=== PATIENT | male | born 1945 | race American Indian/Alaskan Native ===

== ENCOUNTER 2017-01-17 08:57 | Day surgery (SDC) | payer MEDICARE ==
[2017-01-17] MEDS ORDERED: ATROPINE 0.1% (CARDIAC) ONE (11:04)
[2017-01-17] MEDS ORDERED: NACL 0.9% 500 ML 500 ML ONE (11:04)
[2017-01-17 11:57] VITALS: BP 112/81
--- NOTE | 2017-01-18 01:21 | Tilt Table Report ---
REFERRING PHYSICIAN: Dr. Margie Kumar. CLINICAL DATA: This is a 71-year-old pleasant -[place] gentleman with a history of nonobstructive coronary artery disease, recurrent syncope. He underwent a tilt table test as per the protocol to rule out vasodepressor syncope. The patient was tilted to 80 degrees and he was observed for 30 minutes in that position. The patient's slowest heart rate was 76 per minute and peak heart rate was 92 beats per minute. The lowest blood pressure was 99/71 mmHg and peak blood pressure was 124/85 mmHg. During the test, the patient did not have any bradycardia, hypotension, lightheadedness, presyncope or syncope. The above test is negative for vasodepressor syncope. JOB# [id number] ALVIN/ALEXA
== END 2017-01-17 12:23 | disposition home or self-care (01) ==
LOC: CATHLABREC 08:57
DX: R55 Syncope and collapse (principal); I10 Essential (primary) hypertension; F17.210 Nicotine dependence, cigarettes, uncomplicated
CPT/HCPCS: 93660; J7040; J0153; J0461